=== PATIENT | female | born 1935 | race Caucasian/White ===

== ENCOUNTER 2017-09-20 19:44 | Inpatient (IN) ==
[2017-09-20] MEDS ORDERED: ONDANSETRON 4 MG/2 ML VIAL IV STA (20:24)
[2017-09-20] MEDS ORDERED: SODIUM CHLORIDE 0.9% 500 ML IV STA (20:24)
[2017-09-20 20:55] LABS: Basophils % 0.5 % (0.0-0.8); Eosinophils # 0.4 10*3/uL (0.0-0.87); Eosinophils % 6.3 % (0.00-10.9); Hematocrit 35.6 VOL% (35.7-47.0); Hemoglobin 11.8 GM/DL (12.0-16.0); Immature Granulocytes % 0.3 %; Immature Granulocytes Absolute 0.02 #; Lymphocytes # 2.2 10*3/uL (1.4-4.0); Lymphocytes % 37.3 % (21.3-54.2); Mean Corpuscular HGB Conc 33.1 GM/DL (32-36); Mean Corpuscular Hemoglobin 32 PG (27-34); Mean Corpuscular Volume 96.7 FL (87-102); Mean Platelet Volume 9.1 FL (9.6-12.0); Monocytes # 0.5 10*3/uL (0.11-0.8); Monocytes % 8.9 % (1.7-12.7); Neutrophils # 2.7 10*3/uL (1.4-7.4); Neutrophils % 46.7 % (38.7-73.9); Platelet Count 207 T/CUMM (130-400); Red Blood Count 3.68 MC/CUMM (3.8-5.5); Red Cell Distribution Width 12.6 % (9.3-17.3); White Blood Count 5.8 T/CUMM (4-12)
[2017-09-20 21:14] LABS: Alanine Aminotransferase 17 U/L (13-56); Albumin 3.8 G/DL (3.4-5.0); Alkaline Phosphatase 25 U/L (45-117); Amylase 86 U/L (25-115); Aspartate Amino Transferase 13 U/L (0-37); Bilirubin,Total < 0.39 MG/DL (0.2-1.0); Blood Urea Nitrogen 22 MG/DL (7-18); Calcium 8.3 MG/DL (8.5-10.1); Glucose 98 MG/DL (74-106); Osmolality,Calculated 281.4 MOS/KG (273-304); Potassium 4.1 MMOL/L (3.5-5.1); Sodium 140 MMOL/L (136-145); Total Protein 6.8 G/DL (6.4-8.3)
[2017-09-20 21:16] LABS: Troponin I Only < 0.015 NG/ML (0.00-0.045)
[2017-09-20] MEDS ORDERED: ONDANSETRON 4 MG/2 ML VIAL ONE (21:28)
[2017-09-20] MEDS ORDERED: NITROGLYCERIN SL 0.4 MG TABLET SL PRN (21:41)
[2017-09-20] MEDS ORDERED: METHOCARBAMOL 750 MG TABLET PO PRN (21:41)
[2017-09-20] MEDS: SODIUM CHLORIDE 0.9% 1,000 ML IV SCH (22:41)
[2017-09-21 05:34] LABS: Basophils % 0.5 % (0.0-0.8); Eosinophils # 0.4 10*3/uL (0.0-0.87); Hematocrit 34.8 VOL% (35.7-47.0); Hemoglobin 11.7 GM/DL (12.0-16.0); Immature Granulocytes % 0.2 %; Immature Granulocytes Absolute 0.01 #; Lymphocytes # 2.1 10*3/uL (1.4-4.0); Lymphocytes % 38.3 % (21.3-54.2); Mean Corpuscular HGB Conc 33.6 GM/DL (32-36); Mean Corpuscular Hemoglobin 32 PG (27-34); Mean Corpuscular Volume 95.3 FL (87-102); Monocytes # 0.5 10*3/uL (0.11-0.8); Monocytes % 9.3 % (1.7-12.7); Neutrophils # 2.4 10*3/uL (1.4-7.4); Neutrophils % 43.7 % (38.7-73.9); Platelet Count 185 T/CUMM (130-400); Red Blood Count 3.65 MC/CUMM (3.8-5.5); Red Cell Distribution Width 12.5 % (9.3-17.3); White Blood Count 5.5 T/CUMM (4-12)
[2017-09-21 06:04] LABS: Calcium 8.1 MG/DL (8.5-10.1); Osmolality,Calculated 283.1 MOS/KG (273-304); Potassium 4.3 MMOL/L (3.5-5.1)
[2017-09-21 06:14] LABS: Risk Ratio 4.46; VLDL CHOLESTEROL 27.6 MG/DL
[2017-09-21] MEDS: LEVOTHYROXINE 50 MCG TABLET PO SCH (06:39)
[2017-09-21] MEDS: METOPROLOL SUCCINATE XL 25 MG TABLET PO SCH ×2 (07:32→08:21)
[2017-09-21] MEDS: carBAMazepine 200 MG TABLET PO SCH ×2 (07:33→08:21)
[2017-09-21] MEDS: PARoxetine 10 MG TABLET PO SCH (08:20)
[2017-09-21] MEDS: GABAPENTIN 600 MG TABLET PO SCH ×2 (08:20→21:29)
[2017-09-21] MEDS: MEGESTROL 400 MG/10 ML UDCUP PO SCH (08:20)
[2017-09-21] MEDS: MULTIVITAMIN (CENTRUM) TABLET PO SCH (08:20)
[2017-09-21] MEDS: PANTOPRAZOLE 40 MG TABLET PO SCH (08:21)
[2017-09-21] MEDS: NON-FORMULARY MEDICATION (Vortioxetine Hydrobromide [Trintellix] 10 MG) PO SCH (08:21)
[2017-09-21] MEDS ORDERED: NON-FORMULARY MEDICATION (Omeprazole [Prilosec] 20 MG) PO SCH (09:00)
[2017-09-21] MEDS: ONDANSETRON 4 MG/2 ML VIAL IV PRN ×3 (13:32→21:30)
[2017-09-21] MEDS: SODIUM CHLORIDE 0.9% 1,000 ML IV SCH (21:27)
[2017-09-21] MEDS: MIRTAZAPINE 15 MG TABLET PO SCH (21:29)
[2017-09-21] MEDS: MONTELUKAST 10 MG TABLET PO SCH (21:29)
[2017-09-21] MEDS: DONEPEZIL 10 MG TABLET PO SCH (21:30)
[2017-09-22] MEDS: LEVOTHYROXINE 50 MCG TABLET PO SCH (06:13)
[2017-09-22 08:42] LABS: Basophils % 0.3 % (0.0-0.8); Eosinophils # 0.3 10*3/uL (0.0-0.87); Eosinophils % 5.3 % (0.00-10.9); Hematocrit 34.9 VOL% (35.7-47.0); Hemoglobin 12.2 GM/DL (12.0-16.0); Immature Granulocytes % 0.3 %; Immature Granulocytes Absolute 0.02 #; Lymphocytes # 1.9 10*3/uL (1.4-4.0); Lymphocytes % 32.5 % (21.3-54.2); Mean Corpuscular Hemoglobin 32 PG (27-34); Mean Corpuscular Volume 92.8 FL (87-102); Mean Platelet Volume 9.4 FL (9.6-12.0); Monocytes # 0.7 10*3/uL (0.11-0.8); Monocytes % 11.8 % (1.7-12.7); Neutrophils # 2.9 10*3/uL (1.4-7.4); Neutrophils % 49.8 % (38.7-73.9); Platelet Count 212 T/CUMM (130-400); Red Blood Count 3.76 MC/CUMM (3.8-5.5); Red Cell Distribution Width 12.3 % (9.3-17.3); White Blood Count 5.9 T/CUMM (4-12)
[2017-09-22 09:01] LABS: Calcium 7.9 MG/DL (8.5-10.1); Osmolality,Calculated 278.3 MOS/KG (273-304); Potassium 3.7 MMOL/L (3.5-5.1)
[2017-09-22] MEDS: PARoxetine 10 MG TABLET PO SCH (09:07)
[2017-09-22] MEDS: METOPROLOL SUCCINATE XL 25 MG TABLET PO SCH (09:08)
[2017-09-22] MEDS: MULTIVITAMIN (CENTRUM) TABLET PO SCH (09:08)
[2017-09-22] MEDS: MEGESTROL 400 MG/10 ML UDCUP PO SCH (09:08)
[2017-09-22] MEDS: GABAPENTIN 600 MG TABLET PO SCH ×2 (09:08→21:39)
[2017-09-22] MEDS: carBAMazepine 200 MG TABLET PO SCH (09:08)
[2017-09-22] MEDS: PANTOPRAZOLE 40 MG TABLET PO SCH (09:08)
[2017-09-22] MEDS: SODIUM CHLORIDE 0.9% 1,000 ML IV SCH (09:11)
[2017-09-22] MEDS: NON-FORMULARY MEDICATION (Vortioxetine Hydrobromide [Trintellix] 10 MG) PO SCH (09:12)
[2017-09-22] MEDS: DEXTROSE 5% NACL 0.45% 1,000 ML IV SCH (12:10)
[2017-09-22] MEDS ORDERED: ACETAMINOPHEN 325 MG TABLET PO PRN (17:03)
[2017-09-22] MEDS: MONTELUKAST 10 MG TABLET PO SCH (21:39)
[2017-09-22] MEDS: DONEPEZIL 10 MG TABLET PO SCH (21:40)
[2017-09-22] MEDS: MIRTAZAPINE 15 MG TABLET PO SCH (21:40)
[2017-09-23] MEDS: DEXTROSE 5% NACL 0.45% 1,000 ML IV SCH ×2 (02:03→14:35)
[2017-09-23 05:46] LABS: Basophils % 0.3 % (0.0-0.8); Eosinophils # 0.4 10*3/uL (0.0-0.87); Eosinophils % 9.4 % (0.00-10.9); Hematocrit 34.3 VOL% (35.7-47.0); Hemoglobin 11.9 GM/DL (12.0-16.0); Immature Granulocytes % 0.3 %; Immature Granulocytes Absolute 0.01 #; Lymphocytes # 1.4 10*3/uL (1.4-4.0); Lymphocytes % 36.6 % (21.3-54.2); Mean Corpuscular HGB Conc 34.7 GM/DL (32-36); Mean Corpuscular Hemoglobin 32 PG (27-34); Mean Corpuscular Volume 92.7 FL (87-102); Mean Platelet Volume 9.1 FL (9.6-12.0); Monocytes # 0.4 10*3/uL (0.11-0.8); Monocytes % 11.2 % (1.7-12.7); Neutrophils # 1.6 10*3/uL (1.4-7.4); Neutrophils % 42.2 % (38.7-73.9); Platelet Count 186 T/CUMM (130-400); Red Cell Distribution Width 12.2 % (9.3-17.3); White Blood Count 3.9 T/CUMM (4-12)
[2017-09-23 06:15] LABS: Osmolality,Calculated 283.8 MOS/KG (273-304); Potassium 3.9 MMOL/L (3.5-5.1)
[2017-09-23] MEDS ORDERED: PANTOPRAZOLE 40 MG TABLET PO SCH (09:00)
[2017-09-23] MEDS: PARoxetine 10 MG TABLET PO SCH (10:08)
[2017-09-23] MEDS: carBAMazepine 200 MG TABLET PO SCH (10:09)
[2017-09-23] MEDS: GABAPENTIN 600 MG TABLET PO SCH (10:09)
[2017-09-23] MEDS: METOPROLOL SUCCINATE XL 25 MG TABLET PO SCH (10:10)
[2017-09-23] MEDS: MULTIVITAMIN (CENTRUM) TABLET PO SCH (10:11)
[2017-09-23] MEDS: LEVOTHYROXINE 50 MCG TABLET PO SCH (10:12)
[2017-09-23] MEDS: MEGESTROL 400 MG/10 ML UDCUP PO SCH (10:12)
[2017-09-23] MEDS: NON-FORMULARY MEDICATION (Vortioxetine Hydrobromide [Trintellix] 10 MG) PO SCH (10:45)
[2017-09-23 11:20] VITALS: BP 124/95
[2017-09-23] MEDS ORDERED: PROPOFOL 200 MG/20 ML VIAL IV ONE (13:46)
== END 2017-09-23 14:36 | disposition home health service (06) | DRG 392 ==
LOC: EDUNIT# 19:44 → EDBD 19:44 → N.ED 19:44 → SUATTDRO 20:50 → N.EDINP 20:50 → N.5E 21:38
PROVIDERS: ADMIT Internal Medicine; ATTEND Internal Medicine